=== PATIENT | male | born 1955 | race African-American/Black ===

== ENCOUNTER 2018-10-02 11:29 | Inpatient (IN) | payer OTHER ==
[2018-10-02 14:57] VITALS: BMI 22.7
--- NOTE | 2018-10-02 16:48 | HP ---
"CIWA Score Nausea/Vomitin-Mild Nausea/No Vomiting Muscle Tremors: 4-Moderate,w/Arms Extend Anxiety: 1-Mildly Anxious Agitation: 3 Paroxysmal Sweats: 3 Orientation: 0-Oriented Tacttile Disturbances: 0-None Auditory Disturbances: 0-None Visual Disturbances: 0-None Headache: 0-None Present CIWA-Ar Total Score: 12 - Admission Criteria OASAS Guidelines: Admission for Medically Managed Detox: Requires at least one of the followin. CIWA greater than 12 2. Seizures within the past 24 hours 3. Delirium tremens within the past 24 hours 4. Hallucinations within the past 24 hours 5. Acute intervention needed for co occurring medical disorder 6. Acute intervention needed for co occurring psychiatric disorder 7. Severe withdrawal that cannot be handled at a lower level of care (continued vomiting, continued diarrhea, abnormal vital signs) requiring intravenous medication and/or fluids 8. Patient presents the following: CIWA greater than 12 Admission Criteria Met: Admission criteria met Admission ROS [facility] Chief Complaint: Alcohol and crack withdrawal Allergies/Adverse Reactions: Allergies Allergy/AdvReac Type Severity Reaction Status Date / Time No Known Allergies Allergy Verified 10/02/18 14:25 History of Present Illness: 62 yo presents requesting detox from alcohol and cocaine. Patient is very drowsy and falling asleep during questioning. Pupils on arrival were pinpoint. Patient monitored in [facility] from 1630 to 1910 hrs before transport to . CIWA and PE completed just prior to transfer to . Alcohol use began at age 18. Currently drinks approx 10 cans 12 oz beers daily. States also drinks hard liquor(Barcardi) about once/week. Last drink just before arrival. Cocaine use began at age 18. Smokes crack daily. Last use just before arrival. Marijuana use began at age [age]. Nicotine use began at age 22. Smokes 1 PPD. Heroin use began at age 22. 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 Currently on [facility] - Clinic 08/21. Current methadone dose is 90 mg PO daily. States last medicated today. Denies seizures or blackouts. States had an overdose 3 weeks ago. Has Narcan at home. PMHx: Denies significant PMH MHHx: Denies MH problems. Denies thoughts of harming self or others. Search Terms: Ru Cerna, 1955 Search Date: 10/02/2018 04:42:38 PM The Drug Utilization Report below displays all of the controlled substance prescriptions, if any, that your patient has filled in the last twelve months. The information displayed on this report is compiled from pharmacy submissions to the Department, and accurately reflects the information as submitted by the pharmacies. This report was requested by: Renee Jerez | Reference #: [id number] There are no results for the search terms that you entered. Search Terms: Ru Cerna, 1955 Search Date: 10/02/2018 04:43:42 PM States Searched: [place], [place], [place], [place], [place], [place], [place] The Drug Utilization Report below displays the controlled substance prescriptions, if any, that were dispensed in the indicated state(s). The information displayed on this report is compiled from requests submitted to other states' PMPs, and accurately reflects the information as returned by them. Blank jaimes indicate data not provided by other state. This report was requested by: Renee Jerez | Reference #: [id number] Exam Limitations: Other (Patient was very drowsy and had to be monitored for 3 hours until became more alert and began to experience withdrawal symptoms.) - Ebola screening Have you traveled outside of the country in the last 21 days: No Have you had contact with anyone from an Ebola affected area: No Have you been sick,other than usual withdrawal symptoms: No (Denies recent exposure to measles. ) Do you have a fever: No - Review of Systems Constitutional: Unintentional Wgt. Loss (related to poor eating) EENT: reports: Blurred Vision, Dental Problems (Missing many teeth) Respiratory: reports: No Symptoms reported Cardiac: reports: No Symptoms Reported GI: reports: Nausea (Now c/o nausea) : reports: No Symptoms Reported Musculoskeletal: reports: Back Pain (Intermittent LBP. None at this time) Integumentary: reports: No Symptoms Reported Neuro: reports: Numbness (Intrmittent numbness in both thumbs) Endocrine: reports: No Symptoms Reported Hematology: reports: No Symptoms Reported Psychiatric: reports: Judgement Intact, Orientated x3 Patient History - PPD History Previous Implant?: Yes Documented Results: Negative w/o proof Implanted On Prior [facility] Admission?: Yes PPD to be Administered?: No - Smoking Cessation Smoking history: Current every day smoker Have you smoked in the past 12 months: Yes Aproximately how many cigarettes per day: 10 Hx Chewing Tobacco Use: No Initiated information on smoking cessation: Yes 'Breaking Loose' booklet given: 10/02/18 - Substance & Tx. History Hx Alcohol Use: Yes Hx Substance Use: Yes Substance Use Type: Alcohol, Cocaine, Heroin, Marijuana Hx Substance Use Treatment: Yes (detox, rehab, Currently in a [facility]) - Substances abused Alcohol Substance route: Oral Frequency: Daily Amount used: half a case of beer and a pint of voldka Age of first use: 18 Date of last use: 10/02/18 Crack Substance route: Smoking Frequency: Daily Amount used: 15 bags Age of first use: 23 Date of last use: 10/02/18 Admission Physical Exam S - Vital Signs Vital Signs: Vital Signs - 24 hr 10/02/18 10/02/18 14:11 15:58 Temperature 97.1 F L 97.1 F L Pulse Rate 53 L 53 L Respiratory 18 18 Rate Blood Pressure 96/64 96/64 - Physical General Appearance: Yes: Mild Distress, Thin, Tremorous (Gross tremors w/ arms elevated), Sweating (Increased facial moisture), Other (Drowsy but arousable.) HEENTM: Yes: EOMI, Hearing grossly Normal, Normocephalic, DONTAE (Pupils were 1 mm and now 2 mm), Pharynx Normal, Other (Pupils pinpont (1 mm) w/ minimal response to light.) Respiratory: Yes: Lungs Clear, Normal Breath Sounds, No Respiratory Distress, Other (Respirations fluctuated between 10 and 12. Intermittent snoring.) Neck: Yes: No masses,lesions,Nodules, Supple Breast: Yes: Breast Exam Deferred Cardiology: Yes: Regular Rhythm, S1, S2, Bradycardia (Assed heart rate count fluctuated between 46 and 50. (EKG = 42)) Abdominal: Yes: Non Tender, Flat, Soft, Increased Bowel Sounds Genitourinary: Yes: Within Normal Limits Back: Yes: Normal Inspection Musculoskeletal: Yes: full range of Motion, Gait Steady Extremities: Yes: Normal Capillary Refill, Normal Range of Motion, Tremors ( Gross tremors w/ arms elevated) Neurological: Yes: nut threader II-XII NML intact, Fully Oriented, Motor Strength 5/5 Integumentary: Yes: Normal Color, Warm Lymphatic: Yes: Within Normal Limits - Diagnostic (1) Alcohol dependence with uncomplicated withdrawal Current Visit: Yes Status: Acute (2) Cocaine dependence, uncomplicated Current Visit: Yes Status: Chronic Comment: Crack/cocaine use disorder (3) Methadone maintenance therapy patient Current Visit: Yes Status: Chronic Comment: [facility] Clinic 08/21. (4) Bradycardia Current Visit: Yes Status: Chronic (5) Abnormal EKG Current Visit: Yes Status: Acute (6) Nicotine dependence, uncomplicated Current Visit: Yes Status: Chronic Qualifiers: Nicotine product type: cigarettes Qualified Code(s): F17.210 - Nicotine dependence, cigarettes, uncomplicated (7) Other abnormalities of breathing Current Visit: Yes Status: Acute Comment: Slowed resp rate (10-12) w/ snoring (8) Cannabis dependence, uncomplicated Current Visit: Yes Status: Chronic Cleared for Admission [facility] - Detox or Rehab S Level of Care: Medically Managed Detox Regimen/Protocol: Librium Claeared for Rehab Admission: No Breathalyzer - Breathalyzer Breathalyzer: 0 Urine Drug Screen - Test Device Lot number: [id number] Expiration date: 07/14/20 - Control Is test valid?: Yes - Results Drug screen NEGATIVE: No Urine drug screen results: THC-Marijuana, MTD-Methadone Inpatient Rehab Admission - Rehab Decision to Admit Inpatient rehab admission?: No"
[2018-10-02] MEDS ORDERED: MELATONIN 5 MG TABLETS PO PRN (17:36)
[2018-10-02] MEDS ORDERED: MENTHOL/PHENOL 1 EACH UD MM PRN (17:36)
[2018-10-02] MEDS ORDERED: MAGNESIUM CITRATE 300 ML BOTTLE PO PRN (17:36)
[2018-10-02] MEDS ORDERED: MAG HYDROX/AL HYDROX/SIMETH 30 ML UNIT-DOSE CUP PO PRN (17:36)
[2018-10-02] MEDS ORDERED: ACETAMINOPHEN 325 MG TABLET (FP) PO PRN ×2 (17:36)
[2018-10-02] MEDS ORDERED: NICOTINE POLACRILEX 2 MG GUM BUC PRN (17:36)
[2018-10-02] MEDS ORDERED: BISMUTH SUBSALICYLATE 524 MG/30 ML UD PO PRN (17:36)
[2018-10-02] MEDS ORDERED: MAGNESIUM HYDROX 2400MG/30ML ORAL SUSPENSION 30 ML CUP PO PRN (17:36)
[2018-10-02] MEDS ORDERED: IBUPROFEN 400 MG TABLET (FP) PO PRN (17:36)
[2018-10-02] MEDS ORDERED: METHOCARBAMOL 500 MG TABLET PO PRN (17:36)
[2018-10-02] MEDS ORDERED: chlordiazePOXIDE HCL 10 MG CAPSULE PO PRN (21:18)
[2018-10-02] MEDS: THIAMINE HCL 100 MG TABLET (FP) PO SCH (21:32)
[2018-10-02] MEDS: chlordiazePOXIDE HCL 25 MG CAPSULE PO SCH (21:32)
[2018-10-03] MEDS: chlordiazePOXIDE HCL 25 MG CAPSULE PO SCH ×3 (05:57→22:27)
[2018-10-03] MEDS ORDERED: METHADONE HCL 10 MG TABLET PO SCH (09:30)
[2018-10-03 10:33] LABS: ALBUMIN 3.1 g/dl (3.4-5.0); BILIRUBIN,TOTAL 0.4 mg/dL (0.2-1); BLOOD UREA NITROGEN 18.4 mg/dL (7-18); CALCIUM 8.6 mg/dL (8.5-10.1); POTASSIUM 4.3 mmol/L (3.5-5.1); TOT PROT 6.3 g/dl (6.4-8.2)
[2018-10-03] MEDS: PRENATAL VITAMINS W/ FOLIC ACID TABLET (FP) PO SCH (10:58)
[2018-10-03] MEDS: NICOTINE 14 MG/24 HOURS TOPICAL PATCH TD SCH (10:59)
[2018-10-03 11:14] LABS: HEMATOCRIT 41.5 % (35.4-49); HEMOGLOBIN 13.7 GM/dL (11.7-16.9); MCH 31.1 pg (25.7-33.7); MEAN PLT VOLUME 7.7 fl (7.5-11.1); PLATELET COUNT 279 K/MM3 (134-434); RBC 4.42 M/mm3 (4.00-5.60); RDW 14.3 % (11.9-15.9); WHITE BLOOD COUNT 3.9 K/mm3 (4.0-10.0)
[2018-10-03] MEDS ORDERED: METHADONE HCL 10 MG TABLET PO ONE (13:18)
--- NOTE | 2018-10-03 13:20 | PN ---
S CIWA - CIWA Score Nausea/Vomitin-No Nausea/No Vomiting Muscle Tremors: 3 Anxiety: 3 Agitation: 1-Slight > Activity Paroxysmal Sweats: 3 Orientation: 0-Oriented Tacttile Disturbances: 2-Mild Itch/Numbness/Burn Auditory Disturbances: 2-Mild Harshness/Frighten Visual Disturbances: 0-None Headache: 0-None Present CIWA-Ar Total Score: 14 [facility] Progress Note (SOAP) Subjective: Anxious, Sweating, Tremors. Objective: PATIENT A & O X 3, OBSERVED AMBULATING ON UNIT UNASSISTED. IN NO ACUTE DISTRESS. 10/03/18 13:19 Vital Signs Temperature 97.5 F L 10/03/18 09:28 Pulse Rate 64 10/03/18 09:28 Respiratory Rate 18 10/03/18 09:28 Blood Pressure 109/60 10/03/18 09:28 O2 Sat by Pulse Oximetry (%) Laboratory Tests 10/03/18 10/03/18 10/03/18 08:00 08:00 08:00 WBC 3.9 L RBC 4.42 Hgb 13.7 Hct 41.5 MCV 94.0 MCH 31.1 MCHC 33.0 RDW 14.3 Plt Count 279 MPV 7.7 Sodium 141 Potassium 4.3 Chloride 104 Carbon Dioxide 33 H Anion Gap 4 L BUN 18.4 H Creatinine 1.0 Est GFR (CKD-EPI)AfAm 94.39 Est GFR (CKD-EPI)NonAf 81.44 Random Glucose 90 Calcium 8.6 Total Bilirubin 0.4 AST 17 ALT 18 Alkaline Phosphatase 64 Total Protein 6.3 L Albumin 3.1 L RPR Titer Nonreactive LABS NOTED. RESULTS OF QFT /TB TEST PENDING. 10/03/18 13:20 Assessment: 10/03/18 13:20 WITHDRAWAL SYMPTOMS. Plan: CONTINUE DETOX. INCREASE DAILY PO WATER INTAKE.
[2018-10-03] MEDS ORDERED: METHADONE HCL 10 MG TABLET ONE (13:43)
[2018-10-03] MEDS ORDERED: METHADONE HCL 40 MG DISPERSABLE TABLET ONE (13:43)
[2018-10-03] MEDS ORDERED: METHADONE 80 MG, METHADONE 10 MG PO ONE (13:45)
[2018-10-03] MEDS: THIAMINE HCL 100 MG TABLET (FP) PO SCH (22:27)
--- NOTE | 2018-10-03 23:58 | EKG ---
Test Reason : Blood Pressure : / mmHG Vent. Rate : 058 BPM Atrial Rate : 058 BPM P-R Int : 194 ms QRS Dur : 074 ms QT Int : 408 ms P-R-T Axes : 074 005 080 degrees QTc Int : 400 ms SINUS BRADYCARDIA POSSIBLE LEFT ATRIAL ENLARGEMENT NONSPECIFIC T WAVE ABNORMALITY ABNORMAL ECG WHEN COMPARED WITH ECG OF 02-OCT-2018 18:39, NO SIGNIFICANT CHANGE WAS FOUND Confirmed by ARTEMIO BARKSDALE, MAIKEL ([id number]) on 10/03/2018 11:58:26 PM Referred By: RADU PARRY Confirmed By:MAIKEL ULLOA MD
--- NOTE | 2018-10-04 00:07 | EKG ---
Test Reason : Blood Pressure : / mmHG Vent. Rate : 042 BPM Atrial Rate : 042 BPM P-R Int : 214 ms QRS Dur : 080 ms QT Int : 448 ms P-R-T Axes : 057 030 049 degrees QTc Int : 374 ms MARKED SINUS BRADYCARDIA WITH 1ST DEGREE A-V BLOCK POSSIBLE LEFT ATRIAL ENLARGEMENT NONSPECIFIC T WAVE ABNORMALITY ABNORMAL ECG NO PREVIOUS ECGS AVAILABLE Confirmed by MAIKEL ULLOA MD ([id number]) on 10/04/2018 12:07:18 AM Referred By: Confirmed By:MAIKEL ULLOA MD
[2018-10-04] MEDS ORDERED: METHADONE HCL 10 MG TABLET ONE (05:07)
[2018-10-04] MEDS ORDERED: METHADONE HCL 40 MG DISPERSABLE TABLET ONE (05:08)
[2018-10-04] MEDS: chlordiazePOXIDE 5 MG CAPSULE PO SCH ×3 (05:50→22:52)
[2018-10-04] MEDS: METHADONE 80 MG, METHADONE 10 MG PO SCH (05:50)
[2018-10-04] MEDS: PRENATAL VITAMINS W/ FOLIC ACID TABLET (FP) PO SCH (10:05)
[2018-10-04] MEDS: NICOTINE 14 MG/24 HOURS TOPICAL PATCH TD SCH (10:06)
--- NOTE | 2018-10-04 13:27 | PN ---
[facility] CIWA - CIWA Score Nausea/Vomitin-Mild Nausea/No Vomiting Muscle Tremors: 3 Anxiety: 3 Agitation: 2 Paroxysmal Sweats: 1-Minimal Palms Moist Orientation: 0-Oriented Tacttile Disturbances: 0-None Auditory Disturbances: 0-None Visual Disturbances: 0-None Headache: 1-Very Mild CIWA-Ar Total Score: 11 [facility] Progress Note (SOAP) Subjective: received methadone 90 mg today tremor otherwise doing ok ambulating on hallway social with peers discuss aftercare with staff prefers [facility] Objective: 10/04/18 13:27 Vital Signs Temperature 98.3 F 10/04/18 13:24 Pulse Rate 70 10/04/18 13:24 Respiratory Rate 18 10/04/18 13:24 Blood Pressure 102/71 10/04/18 13:24 O2 Sat by Pulse Oximetry (%) Laboratory Last Values WBC 3.9 K/mm3 (4.0-10.0) L 10/03/18 08:00 RBC 4.42 M/mm3 (4.00-5.60) 10/03/18 08:00 Hgb 13.7 GM/dL (11.7-16.9) 10/03/18 08:00 Hct 41.5 % (35.4-49) 10/03/18 08:00 MCV 94.0 fl (80-96) 10/03/18 08:00 MCH 31.1 pg (25.7-33.7) 10/03/18 08:00 MCHC 33.0 g/dl (32.0-35.9) 10/03/18 08:00 RDW 14.3 % (11.9-15.9) 10/03/18 08:00 Plt Count 279 K/MM3 (134-434) 10/03/18 08:00 MPV 7.7 fl (7.5-11.1) 10/03/18 08:00 Sodium 141 mmol/L (136-145) 10/03/18 08:00 Potassium 4.3 mmol/L (3.5-5.1) 10/03/18 08:00 Chloride 104 mmol/L (98-107) 10/03/18 08:00 Carbon Dioxide 33 mmol/L (21-32) H 10/03/18 08:00 Anion Gap 4 MMOL/L (8-16) L 10/03/18 08:00 BUN 18.4 mg/dL (7-18) H 10/03/18 08:00 Creatinine 1.0 mg/dL (0.55-1.3) 10/03/18 08:00 Est GFR (CKD-EPI)AfAm 94.39 10/03/18 08:00 Est GFR (CKD-EPI)NonAf 81.44 10/03/18 08:00 Random Glucose 90 mg/dL (74-106) 10/03/18 08:00 Calcium 8.6 mg/dL (8.5-10.1) 10/03/18 08:00 Total Bilirubin 0.4 mg/dL (0.2-1) 10/03/18 08:00 AST 17 U/L (15-37) 10/03/18 08:00 ALT 18 U/L (13-61) 10/03/18 08:00 Alkaline Phosphatase 64 U/L (45-117) 10/03/18 08:00 Total Protein 6.3 g/dl (6.4-8.2) L 10/03/18 08:00 Albumin 3.1 g/dl (3.4-5.0) L 10/03/18 08:00 RPR Titer Nonreactive (NONREACTIVE) 10/03/18 08:00 lab noted Assessment: 10/04/18 13:28 alcohol withdrawal sx Plan: continue alcohol detox
[2018-10-04] MEDS: THIAMINE HCL 100 MG TABLET (FP) PO SCH (22:52)
[2018-10-05] MEDS ORDERED: chlordiazePOXIDE HCL 10 MG CAPSULE PO PRN
[2018-10-05] MEDS ORDERED: METHADONE HCL 40 MG DISPERSABLE TABLET ONE (04:40)
[2018-10-05] MEDS ORDERED: METHADONE HCL 10 MG TABLET ONE (04:40)
[2018-10-05] MEDS: chlordiazePOXIDE HCL 10 MG CAPSULE PO SCH ×2 (06:27→13:11)
[2018-10-05] MEDS: METHADONE 80 MG, METHADONE 10 MG PO SCH (06:27)
[2018-10-05] MEDS: PRENATAL VITAMINS W/ FOLIC ACID TABLET (FP) PO SCH (10:52)
[2018-10-05] MEDS: NICOTINE 14 MG/24 HOURS TOPICAL PATCH TD SCH (10:53)
--- NOTE | 2018-10-05 12:41 | PN ---
[facility] CIWA - CIWA Score Nausea/Vomitin-No Nausea/No Vomiting Muscle Tremors: 2 Anxiety: 2 Agitation: 2 Paroxysmal Sweats: 1-Minimal Palms Moist Orientation: 0-Oriented Tacttile Disturbances: 0-None Auditory Disturbances: 0-None Visual Disturbances: 0-None Headache: 0-None Present CIWA-Ar Total Score: 7 S Progress Note (SOAP) Subjective: 62 years old male admitted on 10/02/18 for acute alcohol withdrawal sx management doing well with librium detox protocol mild tremor otherwise symptoms were manageable at this time Objective: 10/05/18 12:42 Vital Signs Temperature 97.8 F 10/05/18 10:14 Pulse Rate 68 10/05/18 10:14 Respiratory Rate 18 10/05/18 10:14 Blood Pressure 102/65 10/05/18 10:14 O2 Sat by Pulse Oximetry (%) Laboratory Last Values WBC 3.9 K/mm3 (4.0-10.0) L 10/03/18 08:00 RBC 4.42 M/mm3 (4.00-5.60) 10/03/18 08:00 Hgb 13.7 GM/dL (11.7-16.9) 10/03/18 08:00 Hct 41.5 % (35.4-49) 10/03/18 08:00 MCV 94.0 fl (80-96) 10/03/18 08:00 MCH 31.1 pg (25.7-33.7) 10/03/18 08:00 MCHC 33.0 g/dl (32.0-35.9) 10/03/18 08:00 RDW 14.3 % (11.9-15.9) 10/03/18 08:00 Plt Count 279 K/MM3 (134-434) 10/03/18 08:00 MPV 7.7 fl (7.5-11.1) 10/03/18 08:00 Sodium 141 mmol/L (136-145) 10/03/18 08:00 Potassium 4.3 mmol/L (3.5-5.1) 10/03/18 08:00 Chloride 104 mmol/L (98-107) 10/03/18 08:00 Carbon Dioxide 33 mmol/L (21-32) H 10/03/18 08:00 Anion Gap 4 MMOL/L (8-16) L 10/03/18 08:00 BUN 18.4 mg/dL (7-18) H 10/03/18 08:00 Creatinine 1.0 mg/dL (0.55-1.3) 10/03/18 08:00 Est GFR (CKD-EPI)AfAm 94.39 10/03/18 08:00 Est GFR (CKD-EPI)NonAf 81.44 10/03/18 08:00 Random Glucose 90 mg/dL (74-106) 10/03/18 08:00 Calcium 8.6 mg/dL (8.5-10.1) 10/03/18 08:00 Total Bilirubin 0.4 mg/dL (0.2-1) 10/03/18 08:00 AST 17 U/L (15-37) 10/03/18 08:00 ALT 18 U/L (13-61) 10/03/18 08:00 Alkaline Phosphatase 64 U/L (45-117) 10/03/18 08:00 Total Protein 6.3 g/dl (6.4-8.2) L 10/03/18 08:00 Albumin 3.1 g/dl (3.4-5.0) L 10/03/18 08:00 RPR Titer Nonreactive (NONREACTIVE) 10/03/18 08:00 lab noted Assessment: 10/05/18 12:43 alcohol withdrawal sx Plan: continue alcohol detox
[2018-10-06] MEDS: THIAMINE HCL 100 MG TABLET (FP) PO SCH (00:31)
[2018-10-06] MEDS: chlordiazePOXIDE HCL 10 MG CAPSULE PO SCH (00:31)
[2018-10-06] MEDS ORDERED: METHADONE HCL 40 MG DISPERSABLE TABLET ONE (04:33)
[2018-10-06] MEDS ORDERED: METHADONE HCL 10 MG TABLET ONE (04:33)
[2018-10-06] MEDS ORDERED: chlordiazePOXIDE HCL 10 MG CAPSULE PO ONE (05:00)
[2018-10-06] MEDS: METHADONE 80 MG, METHADONE 10 MG PO SCH (05:35)
[2018-10-06 10:02] VITALS: BP 116/67; PULSE 74; TEMP 98.2
[2018-10-06] MEDS: NICOTINE 14 MG/24 HOURS TOPICAL PATCH TD SCH (11:04)
[2018-10-06] MEDS: PRENATAL VITAMINS W/ FOLIC ACID TABLET (FP) PO SCH (11:05)
--- NOTE | 2018-10-06 13:38 | DS ---
[facility] Detox Discharge Summary Admission Date: 10/02/18 Discharge Date: 10/06/18 - History Present History: Alcohol Dependence Additional Comments: 62 years old male admitted on 10/02/18 for acute alcohol withdrawal sx management no complication throughout the alcohol detox stay alert oriented x 3 steady gait no headache no dizziness no shortness of breath patient prefers [facility] for alcohol recovery facility Pertinent Past History: patient is taking methadone 90 mg po daily patient may return to methadone program for follow up his medication list and lab report - Physical Exam Results Vital Signs: Vital Signs Temperature 98.2 F 10/06/18 10:01 Pulse Rate 74 10/06/18 10:01 Respiratory Rate 18 10/06/18 10:01 Blood Pressure 116/67 10/06/18 10:01 O2 Sat by Pulse Oximetry (%) Pertinent Admission Physical Exam Findings: alcohol withdrawal sx Laboratory Last Values WBC 3.9 K/mm3 (4.0-10.0) L 10/03/18 08:00 RBC 4.42 M/mm3 (4.00-5.60) 10/03/18 08:00 Hgb 13.7 GM/dL (11.7-16.9) 10/03/18 08:00 Hct 41.5 % (35.4-49) 10/03/18 08:00 MCV 94.0 fl (80-96) 10/03/18 08:00 MCH 31.1 pg (25.7-33.7) 10/03/18 08:00 MCHC 33.0 g/dl (32.0-35.9) 10/03/18 08:00 RDW 14.3 % (11.9-15.9) 10/03/18 08:00 Plt Count 279 K/MM3 (134-434) 10/03/18 08:00 MPV 7.7 fl (7.5-11.1) 10/03/18 08:00 Sodium 141 mmol/L (136-145) 10/03/18 08:00 Potassium 4.3 mmol/L (3.5-5.1) 10/03/18 08:00 Chloride 104 mmol/L (98-107) 10/03/18 08:00 Carbon Dioxide 33 mmol/L (21-32) H 10/03/18 08:00 Anion Gap 4 MMOL/L (8-16) L 10/03/18 08:00 BUN 18.4 mg/dL (7-18) H 10/03/18 08:00 Creatinine 1.0 mg/dL (0.55-1.3) 10/03/18 08:00 Est GFR (CKD-EPI)AfAm 94.39 10/03/18 08:00 Est GFR (CKD-EPI)NonAf 81.44 10/03/18 08:00 Random Glucose 90 mg/dL (74-106) 10/03/18 08:00 Calcium 8.6 mg/dL (8.5-10.1) 10/03/18 08:00 Total Bilirubin 0.4 mg/dL (0.2-1) 10/03/18 08:00 AST 17 U/L (15-37) 10/03/18 08:00 ALT 18 U/L (13-61) 10/03/18 08:00 Alkaline Phosphatase 64 U/L (45-117) 10/03/18 08:00 Total Protein 6.3 g/dl (6.4-8.2) L 10/03/18 08:00 Albumin 3.1 g/dl (3.4-5.0) L 10/03/18 08:00 RPR Titer Nonreactive (NONREACTIVE) 10/03/18 08:00 lab noted PPD quantaferon pending - Treatment Hospital Course: Detox Protocol Followed, Detoxed Safely, Responded well, Discharged Condition Good, Rehab Referral Accepted Patient has Accepted a Rehab Referral to: [facility] - Medication Discharge Medications: Ambulatory Orders NK [No Known Home Medication] 10/02/18 - Diagnosis (1) Alcohol dependence with uncomplicated withdrawal Current Visit: Yes Status: Acute (2) Methadone maintenance therapy patient Current Visit: Yes Status: Chronic (3) Nicotine dependence, uncomplicated Current Visit: Yes Status: Acute Qualifiers: Nicotine product type: cigarettes Qualified Code(s): F17.210 - Nicotine dependence, cigarettes, uncomplicated - AMA Did Patient Leave Against Medical Advice: No
== END 2018-10-06 14:00 | disposition home or self-care (01) | DRG 773 ==
LOC: YASAS 11:29 → Y3N 18:28
PROVIDERS: ADMIT Surgery; ATTEND Surgery
PROC: HZ2ZZZZ Detoxification Services for Substance Abuse Treatment (ICD-10-PCS; principal; 2018-10-02)
DX: F10.230 Alcohol dependence with withdrawal, uncomplicated (principal); F11.20 Opioid dependence, uncomplicated; F14.20 Cocaine dependence, uncomplicated; F12.20 Cannabis dependence, uncomplicated; F17.210 Nicotine dependence, cigarettes, uncomplicated; R00.1 Bradycardia, unspecified; R94.31 Abnormal electrocardiogram [ECG] [EKG]; R06.89 Other abnormalities of breathing
CPT/HCPCS: 36415; 80053; 85027; 86480; 86593; 93005; 93010